=== PATIENT | male | born 1995 | race American Indian/Alaskan Native ===

== ENCOUNTER 2018-03-16 10:44 | Emergency (ER) | payer SELFPAY ==
--- NOTE | 2018-03-16 11:35 | Emergency Department Report ---
ED Extremity Problem HPI - General Chief complaint: Extremity Injury, Lower Stated complaint: RIGHT ANKLE SWOLLEN Time Seen by Provider: 03/16/18 11:17 Source: patient, family Mode of arrival: Ambulatory Limitations: No Limitations - History of Present Illness Initial comments: This is a 22-year-old male who reports that he is having right ankle pain and swelling. He states that he had previous injury from high school to both his ankles and his ankle started swelling since Thursday since 03/12/2018. He denies any new injuries. He reports pain in that a 10 and a can. He is using a crutch and reports that he can weight-bear but painful. No medication taken. Pain is worse with walking and weightbearing and better at rest. Denies any chest pain or shortness of breath. Denies any swelling to his legs or any pain to his calves. Denies any radiation of pain proximally. MD Complaint: joint swelling, joint paint Onset/Timin -: days(s) Location: left, lower extremity History of Same: Yes -: No myalgia, Yes arthralgia, No fever, No associated dyspnea, No associated chest pain Radiation: none Severity scale (0 -10): 8 Quality: aching Consistency: constant Improves with: rest Worsens with: weight bearing, walking Associated Symptoms: arthralgias. denies: chest pain, shortness of breath, fever, myalgias, rash - Related Data Previous Rx's Medication Instructions Recorded Last Taken Type Ibuprofen [Motrin] 800 mg PO Q8HR PRN #15 tablet 03/16/18 Unknown Rx Allergies Allergy/AdvReac Type Severity Reaction Status Date / Time No Known Allergies Allergy Unverified 03/16/18 10:52 ED Review of Systems ROS: Stated complaint: RIGHT ANKLE SWOLLEN Other details as noted in HPI Constitutional: denies: chills, fever Eyes: eye discharge ENT: as per HPI Respiratory: denies: cough, shortness of breath, SOB with exertion, SOB at rest , stridor, wheezing Cardiovascular: denies: chest pain, palpitations, edema, syncope Gastrointestinal: denies: abdominal pain, nausea, vomiting, diarrhea Musculoskeletal: joint swelling, arthralgia. denies: back pain Skin: denies: rash, lesions Neurological: denies: headache, weakness, numbness, paresthesias, confusion ED Past Medical Hx - Past Medical History Previous Medical History?: No - Surgical History Past Surgical History?: No - Family History Family history: no significant - Social History Smoking Status: Never Smoker Substance Use Type: None - Medications Home Medications: Home Medications Medication Instructions Recorded Confirmed Last Taken Type Ibuprofen [Motrin] 800 mg PO Q8HR PRN #15 tablet 03/16/18 Unknown Rx ED Physical Exam - General Limitations: No Limitations General appearance: alert, in no apparent distress - Head Head exam: Present: atraumatic, normocephalic, normal inspection - Eye Eye exam: Present: normal appearance, PERRL, EOMI Pupils: Present: normal accommodation - ENT ENT exam: Present: normal exam, normal orophraynx, mucous membranes moist - Neck Neck exam: Present: normal inspection, full ROM. Absent: tenderness, lymphadenopathy - Respiratory Respiratory exam: Present: normal lung sounds bilaterally. Absent: respiratory distress, chest wall tenderness - Cardiovascular Cardiovascular Exam: Present: regular rate, normal rhythm, normal heart sounds. Absent: systolic murmur, diastolic murmur - GI/Abdominal GI/Abdominal exam: Present: soft, normal bowel sounds. Absent: distended - Extremities Exam Extremities exam: Present: normal inspection, full ROM (full range of motion to all joints but patient with limited range of motion to right ankle due to pain) , tenderness (tenderness palpated to right ankle), normal capillary refill, joint swelling (right ankle, malleolus), other (No cce. + 2 pulses in all extremities, no neurovascular compromise. Patient's foot normal joints except right ankle swelling and tenderness palpated.). Absent: pedal edema, calf tenderness - Expanded Lower Extremity Exam Right Hip exam: Present: normal inspection, full ROM, pelvic stability. Absent: tenderness, swelling, abrasion, laceration, ecchymosis, deformity, crepidus, dislocation, erythema, external rotation, internal rotation, shortening Upper Leg exam: Present: normal inspection, full ROM. Absent: tenderness, swelling, abrasion, laceration, ecchymosis, deformity, crepidus, dislocation, erythema Knee exam: Present: normal inspection, full ROM, full knee extension. Absent: tenderness, swelling, abrasion, laceration, ecchymosis, deformity, crepidus, dislocation, erythema, pain/laxity with valgus, pain/laxity with varus Lower Leg exam: Present: normal inspection, full ROM. Absent: tenderness, swelling, abrasion, laceration, ecchymosis, deformity, crepidus, dislocation, erythema, palpable cord, Tam's sign Ankle exam: Present: full ROM (patient with full range of motion but pain with internal and external rotation of ankle and pain with dorsiflexion), tenderness (right malleolus), swelling (malleolus). Absent: normal inspection, abrasion, laceration, ecchymosis, deformity, crepidus, dislocation, erythema, anterior draw sign Foot/Toe exam: Present: normal inspection, full ROM. Absent: tenderness, swelling, abrasion, laceration, ecchymosis, deformity, crepidus, dislocation, erythema, amputation, puncture wound, foreign body, calcaneal tenderness, tenderness at base of 5th metatarsal, nail avulsion, subungual hematoma Neuro vascular tendon exam: Present: no vascular compromise, significant pain with passive ROM of distal joint. Absent: pulse deficit, abnormal cap refill, tendon deficit, extremity cold to touch, pallor, abnormal 2-point discrimination , decreased fine/light touch, foot drop, peroneal nerve deficit Gait: Positive: observed and limited by pain 1 - Right malleolus with swelling, tenderness to palpate, pale range of motion. Pedal pulses are +2 and bounding. - Back Exam Back exam: Present: normal inspection, full ROM, other (ambulates with crutches due to right ankle pain). Absent: tenderness - Neurological Exam Neurological exam: Present: alert, oriented X3, abnormal gait (right ankle pain and swelling), reflexes normal - Psychiatric Psychiatric exam: Present: normal affect, normal mood - Skin Skin exam: Present: warm, dry, intact, normal color. Absent: rash ED Course Vital Signs 03/16/18 10:52 Temperature 97.6 F Pulse Rate 61 Respiratory 16 Rate Blood Pressure 103/67 O2 Sat by Pulse 97 Oximetry - Reevaluation(s) Reevaluation #1: 03/16/18 12:14 refused pain medication in emergency room. See procedure note for detail and splinting - Orthopedic Splinting/Casting Injury #1 Side: right Upper Extremity Immobilizer: Bar wrap Lower Extremity Injury Location: ankle ED Medical Decision Making - Radiology Data Radiology results: report reviewed X-ray 3 view right ankle dictated by radiologist and report reviewed by myself shows normal study Patient: ZAYRA CONNOLLY MR#: [id number] : 1995 Acct:[id number] Age/Sex: 22 / M ADM Date: 03/16/18 Loc: ED Attending Dr: Ordering Physician: FIDENCIO LÓPEZ MD Date of Service: 03/16/18 Procedure(s): XR ankle 3+V RT Accession Number(s): [id number] cc: FIDENCIO LÓPEZ MD Fluoro Time In Minutes: RIGHT ANKLE, 3 views: History: Injury. Bone mineralization is normal. No acute osseous abnormality or joint pathology is identified. The soft tissues are unremarkable. IMPRESSION: Normal study. Transcribed By: TTR Dictated By: GREGG ZARATE JR, MD Electronically Authenticated By: GREGG ZARATE JR, MD Signed Date/Time: 03/16/181134 DD/ 113 TD/TT: 03/16/18 1135 - Medical Decision Making 22-year-old male who is here report that he has had 4 days of ankle swelling without any injury. Denies any numbness or tingling. Pain is 8/10 and is here to be evaluated. Patient was seen and examined by myself. Right ankle with tenderness, swelling and pain with range of motion to the right malleolus. X-rays reveal a right ankle dictated by radiologist and reported myself and shows normal exam. This is discussed with patient and family voiced understanding. Patient came to the hospital was on crutches and he had Bar wrap to right ankle. RICE therapy explained and he voiced understanding. I discussed with him that his ankle is still swollen not to 72 hours he needs to follow up with orthopedic doctor. He did not want anything for pain in the emergency room. Assessment assessment Right ankle sprain-Bar wrap and crutches but patient brought to the hospital. Rice therapy explained Arthralgia right ankle-patient will be placed on Motrin Patient was understanding of discharge instructions and discharged home in stable condition. Vital signs are stable he is afebrile. He is to follow up with orthopedic doctor in 72 hours is swollen and is not relieved. He voiced understanding. Discharged home but his family and he was given a prescription for Motrin - Differential Diagnosis fracture, sprain, strain, musculoskeletal pain Critical care attestation.: If time is entered above; I have spent that time in minutes in the direct care of this critically ill patient, excluding procedure time. ED Disposition Clinical Impression: Sprain of right ankle Qualifiers: Encounter type: initial encounter Involved ligament of ankle: unspecified ligament Qualified Code(s): S93.401A - Sprain of unspecified ligament of right ankle, initial encounter Right ankle pain Qualifiers: Chronicity: acute Qualified Code(s): M25.571 - Pain in right ankle and joints of right foot Disposition: - TO HOME OR SELFCARE Is pt being admited?: No Does the pt Need Aspirin: No Condition: Stable Instructions: Arthralgia (ED), Ankle Sprain (ED), Ankle Exercises (GEN), RICE Therapy (ED) Additional Instructions: Please follow discharge instructions and Rice therapy. Follow-up with orthopedic doctor as instructed Take Motrin as anti-inflammatory to reduce swelling the patient's status medication with food. Rest for 72 hours Referrals: RANJEET GONZALES MD [Staff Physician] - 03/18/18 Forms: Work/School Release Form(ED)
--- NOTE | 2018-03-16 11:41 | XRay Report ---
RIGHT ANKLE, 3 views: History: Injury. Bone mineralization is normal. No acute osseous abnormality or joint pathology is identified. The soft tissues are unremarkable. IMPRESSION: Normal study.
[2018-03-16 12:36] VITALS: BP 106/70
== END 2018-03-16 12:35 | disposition home or self-care (01) ==
LOC: ED 10:44
DX: S93.401A Sprain of unspecified ligament of right ankle, initial encounter (principal); X58.XXXA Exposure to other specified factors, initial encounter; Y93.89 Activity, other specified; Y92.89 Other specified places as the place of occurrence of the external cause; Y99.8 Other external cause status
CPT/HCPCS: 99283